=== PATIENT | male | born 1980 | race Caucasian/White ===

== ENCOUNTER 2025-07-20 15:22 | Outpatient (CLI) | payer OTHER, SELFPAY ==
--- NOTE | 2025-07-20 15:30 | USR_ITS ---
PROCEDURE INFORMATION: Exam: US Soft Tissue Head and Neck, Thyroid Exam date and time: 07/20/2025 3:42 PM Age: 44 years old Clinical indication: Condition or disease; Thyroid disorder; Other: Hypothyroidism TECHNIQUE: Imaging protocol: Real-time ultrasound scan of the neck with image documentation. Exam focused on the thyroid. COMPARISON: No relevant prior studies available. FINDINGS: Right thyroid lobe: The right thyroid measures 1.2 x 1.4 x 4.0 cm. Heterogeneous echotexture of the right thyroid lobe. No right thyroid lobe nodule. Left thyroid lobe: The left thyroid lobe measures 1.2 x 1.1 x 3.2 cm. Heterogeneous echotexture of the left thyroid lobe. No definitive left thyroid lobe nodule. Isthmus: The thyroid isthmus measures 0.4 cm. Lymph nodes: Scattered small normal-appearing lymph nodes such as a 7 x 7 x 3 mm right lower cervical lymph node. US/US thyroid [id number] IMPRESSION: Heterogeneous echotexture of the thyroid gland without evidence of sizable thyroid nodule. Findings are nonspecific but can be seen in the setting of Mukul's thyroiditis.
== END 2025-07-20 15:23 | disposition home or self-care (01) ==
LOC: RAD 15:26
PROVIDERS: PCP Family Medicine Geriatric Medicine; Visit Provider Family Medicine Geriatric Medicine
DX: E03.9 Hypothyroidism, unspecified (principal)
CPT/HCPCS: 76536